=== PATIENT | male | born 1985 | race Two or more races ===

== ENCOUNTER 2018-05-25 18:45 | Emergency (ER) | payer MEDICAID, OTHER ==
[~2018-05-25] VITALS: Ht 170.2 cm; Wt 60.9 kg
[~2018-05-25 18:45] MED LIST: RALT400T PO; [UNRECOGNIZED DRUG - CODE] PEG; [UNRECOGNIZED DRUG - CODE] PO
[2018-05-25] MEDS ORDERED: LORazepam 2 mg/ml vial IV ONE (19:00)
[2018-05-25] MEDS ORDERED: normal saline 1000ML IV soln IVB ONE (19:00)
[2018-05-25 19:24] VITALS: BP 126/80
[2018-05-25 19:43] LABS: ALANINE AMINOTRANSFERASE 24 U/L (12-78); ALBUMIN 3.8 G/DL (3.4-5.0); ALBUMIN/GLOBULIN RATIO 0.6 (1.1-1.5); ALKALINE PHOSPHATASE 104 IU/L (46-116); ANION GAP 13 (8-16); ASPARTATE AMINO TRANSFERASE 23 U/L (10-37); BILIRUBIN,TOTAL 0.4 MG/DL (0.1-1.0); BLOOD UREA NITROGEN 16 MG/DL (7-18); CALCIUM 9.6 MG/DL (8.5-10.1); CHLORIDE 98 MMOL/L (99-107); CREATININE 1.07 MG/DL (0.60-1.10); GLUCOSE 116 MG/DL (70-104); MAGNESIUM 1.8 MG/DL (1.5-2.4); POTASSIUM 3.2 MMOL/L (3.5-5.1); SODIUM 134 MMOL/L (135-145); TOTAL CARBON DIOXIDE 23.4 MMOL/L (24-32); TOTAL PROTEIN 9.7 G/DL (6.4-8.2); eGFR 80 ML/MIN
[2018-05-25 19:44] LABS: BASOPHILS % (AUTO) 0.5 % (0-1); EOSINOPHILS # (AUTO) 0.2 X10'3 (0-0.9); EOSINOPHILS % (AUTO) 2.1 % (0-6); HEMATOCRIT 37.3 % (42.0-52.0); HEMOGLOBIN 12.4 g/dl (14.0-17.9); LYMPHOCYTES # (AUTO) 1.8 X10'3 (1.1-4.8); LYMPHOCYTES % (AUTO) 23.8 % (21-51); MEAN CORPUSCULAR HEMOGLOBIN 27.7 PG (27.0-31.0); MEAN CORPUSCULAR HGB CONC 33.3 g/dL (33.0-36.5); MEAN CORPUSCULAR VOLUME 83.2 FL (78-98); MEAN PLATELET VOLUME 8.3 FL (7.4-10.4); MONOCYTES # (AUTO) 0.4 X10'3 (0-0.9); MONOCYTES % (AUTO) 4.9 % (2-12); NEUTROPHILS # (AUTO) 5.3 X10'3 (1.8-7.7); NEUTROPHILS % (AUTO) 68.7 % (42-75); PLATELET COUNT 269 X10'3 (140-440); RED BLOOD COUNT 4.49 X10'6 (4.70-6.10); RED CELL DISTRIBUTION WIDTH 18.3 % (11.5-14.5); WHITE BLOOD COUNT 7.7 X10'3 (4.5-11.0)
[2018-05-25] MEDS ORDERED: potassium Cl 20 mEq SR tablet PO STA (19:57)
[2018-05-25] MEDS ORDERED: TRAM50TA2 PO (20:00)
== END 2018-05-25 20:13 | disposition home or self-care (01) ==
LOC: ER 18:45
DX: R00.2 Palpitations (principal); E87.6 Hypokalemia; Z79.899 Other long term (current) drug therapy
CPT/HCPCS: 36415; 71045; 80053; 83735; 84484; 85025; 93005; 96374; 99284; J2060; J7030

== ENCOUNTER 2018-07-18 08:26 | Day surgery (SDC) | payer MEDICAID, OTHER ==
--- NOTE | 2018-07-18 11:00 | NUR ---
Patient ambulated independently from [facility] accompanied by his sister Kelli and was admitted to outpatient wound care for physician visit with Issa Torrez MD. Dressing removed, wound cleansed. New patient assessment completed with review of patient's medical history and current medications. 1025 - Dr. Torrez at bedside accompanied by RN. Wound assessed, time out performed by MD/RN. Wound debrided as detailed in the physician progress/procedure note. Plan of care discussed with patient. Dressings placed per MD orders. Patient instructed on the signs and symptoms of infection and to call the Wound Center if any occur or to go to the ED if we are closed: Increased pain in wound Increase in drainage from the wound Redness in the skin surrounding the wound Bleeding from the wound Temperature of 101 or greater Patient instructed that the weight of their body puts a large amount of pressure on their wounds. This pressure keeps the new tissue from growing and inhibits new blood vessels from forming. Explained that, if they continue to bear weight on a body part that has a wound, the time it takes to heal the wound increases, the wound may get worse or the wound may not heal at all. Patient and Kelli verbalized understanding of all discharge instructions and plan of care and ambulated independently accompanied by Kelli out to [facility] in stable condition with no sign or symptom of distress at time of discharge.
[2018-07-18] MEDS ORDERED: SULF1TAB49 PO (16:07)
[2018-07-18] MEDS ORDERED: BICT1TAB (16:07)
== END 2018-07-18 10:40 | disposition home or self-care (01) ==
LOC: WOUND CARE 08:26
PROVIDERS: ATTEND Surgery
DX: S41.102A Unspecified open wound of left upper arm, initial encounter (principal); L72.3 Sebaceous cyst; E87.6 Hypokalemia; Z79.899 Other long term (current) drug therapy; X58.XXXA Exposure to other specified factors, initial encounter; Y93.89 Activity, other specified; Y92.89 Other specified places as the place of occurrence of the external cause; Y99.8 Other external cause status
CPT/HCPCS: 97597; A6266

== ENCOUNTER 2018-07-22 07:58 | Outpatient (CLI) | payer MEDICAID, OTHER ==
[~2018-07-22 07:58] MED LIST changes: +BICT1TAB; -RALT400T PO; +SULF1TAB49 PO; -[UNRECOGNIZED DRUG - CODE] PEG; -[UNRECOGNIZED DRUG - CODE] PO
--- NOTE | 2018-07-22 10:15 | NUR ---
Patient ambulated independently from [facility] accompanied by family member Kelli and was admitted to outpatient wound care for physician visit with Issa Torrez MD. Dressing removed, wound cleansed. Patient assessed for changes in conditions, medications and medical history. 1000 - Dr. Torrez at bedside accompanied by RN. Wound assessed and packing placed by MD. Plan of care discussed with patient. Patient instructed on the signs and symptoms of infection and to call the Wound Center if any occur or to go to the ED if we are closed: Increased pain in wound Increase in drainage from the wound Redness in the skin surrounding the wound Bleeding from the wound Temperature of 101 or greater Patient instructed that the weight of their body puts a large amount of pressure on their wounds. This pressure keeps the new tissue from growing and inhibits new blood vessels from forming. Explained that, if they continue to bear weight on a body part that has a wound, the time it takes to heal the wound increases, the wound may get worse or the wound may not heal at all. Patient and Kelli verbalized understanding of all discharge instructions and plan of care and patient ambulated independently out to [facility] accompanied by Kelli and is in stable condition with no sign or symptom of distress at time of discharge.
== END 2018-07-22 10:06 | disposition home or self-care (01) ==
LOC: WOUND CARE 07:58 → EDSTATUS 08:00 → WOUND CARE 10:06
PROVIDERS: ATTEND Surgery
DX: L72.3 Sebaceous cyst (principal); E87.6 Hypokalemia; Z79.899 Other long term (current) drug therapy
CPT/HCPCS: A6266; G0463; A6212

== ENCOUNTER 2018-08-13 07:50 | Day surgery (SDC) | payer MEDICAID ==
--- NOTE | 2018-08-13 10:30 | NUR ---
Patient ambulated independently from [facility] and was admitted to outpatient wound care for physician visit with Issa Torrez MD. Dressing removed, wound cleansed. Patient assessed for changes in conditions, medications and medical history. 1010 - Dr. Torrez at bedside accompanied by RN. Wound assessed, time out performed by MD/RN. Wound debrided as detailed in the physician progress/procedure note. Plan of care discussed with patient. Dressings placed per MD orders. Patient instructed on the signs and symptoms of infection and to call the Wound Center if any occur or to go to the ED if we are closed: Increased pain in wound Increase in drainage from the wound Redness in the skin surrounding the wound Bleeding from the wound Temperature of 101 or greater Patient instructed that the weight of their body puts a large amount of pressure on their wounds. This pressure keeps the new tissue from growing and inhibits new blood vessels from forming. Explained that, if they continue to bear weight on a body part that has a wound, the time it takes to heal the wound increases, the wound may get worse or the wound may not heal at all. Patient verbalized understanding of all discharge instructions and plan of care and ambulated independently accompanied by family member Kelli out to [facility] in stable condition with no sign or symptom of distress at time of discharge.
[2018-08-13] MEDS ORDERED: FLUC100T PO (14:37)
== END 2018-08-13 10:19 | disposition home or self-care (01) ==
LOC: WOUND CARE 07:50
PROVIDERS: ATTEND Surgery
DX: T81.89XD Other complications of procedures, not elsewhere classified, subsequent encounter (principal); L72.3 Sebaceous cyst; E87.6 Hypokalemia; Z79.899 Other long term (current) drug therapy; Y83.8 Other surgical procedures as the cause of abnormal reaction of the patient, or of later complication, without mention of misadventure at the time of the procedure
CPT/HCPCS: 11042; A6266

== ENCOUNTER 2018-08-20 07:54 | Day surgery (SDC) | payer MEDICAID ==
[2018-08-16 11:26] LABS: BASOPHILS % (AUTO) 0.4 % (0-1); EOSINOPHILS % (AUTO) 0.6 % (0-6); LYMPHOCYTES # (AUTO) 0.9 X10'3 (1.1-4.8); LYMPHOCYTES % (AUTO) 11.7 % (21-51); MEAN CORPUSCULAR HEMOGLOBIN 26.7 PG (27.0-31.0); MEAN CORPUSCULAR HGB CONC 32.9 g/dL (33.0-36.5); MEAN CORPUSCULAR VOLUME 81.2 FL (78-98); MEAN PLATELET VOLUME 8.7 FL (7.4-10.4); MONOCYTES # (AUTO) 0.4 X10'3 (0-0.9); MONOCYTES % (AUTO) 5.6 % (2-12); NEUTROPHILS # (AUTO) 6.3 X10'3 (1.8-7.7); NEUTROPHILS % (AUTO) 81.7 % (42-75); PRE OP HEMOGLOBIN 12.5 g/dL (14.0-17.9); PRE OP PLATELET COUNT 235 X10'3 (140-440); RED BLOOD COUNT 4.67 X10'6 (4.70-6.10); RED CELL DISTRIBUTION WIDTH 14.4 % (11.5-14.5)
[2018-08-16 11:26] LABS: CLARITY,URINE CLEAR (Clear); COLOR,URINE YELLOW (Yellow); GLUCOSE, URINE NEGATIVE (Neg); KETONES,URINE NEGATIVE (Neg); LEUKOCYTE ESTERASE ,URINE NEGATIVE (Neg); NITRITES, URINE NEGATIVE (Neg); OCCULT BLOOD,URINE NEGATIVE (Neg); PROTEIN,URINE TRACE mg/dl (Neg); UROBILINOGEN,URINE 0.2 E.U/dL (0.2-1.0)
[2018-08-16 11:34] LABS: BACTERIA,URINE NONE SEEN /HPF (Neg); MUCUS STRANDS FEW /LPF (Neg); RBC,URINE NONE SEEN /HPF (0-2); SQUAMOUS EPITHELIAL CELL,UR NONE SEEN /LPF (FEW); UA COLLECTION TYPE VOIDED; WBC,URINE 0-4 /HPF (0-4)
[2018-08-16 11:40] LABS: PRE OP INR 1.2 INR; PRE OP PROTIME 11.8 SECONDS (9.0-12.0)
[2018-08-16 11:41] LABS: ALBUMIN 3.1 G/DL (3.4-5.0); ALBUMIN/GLOBULIN RATIO 0.5 (1.1-1.5); ALKALINE PHOSPHATASE 110 IU/L (46-116); BLOOD UREA NITROGEN 19 MG/DL (7-18); BUN/CREATININE RATIO 20.4 (5.4-32.0); CALCIUM 9.1 MG/DL (8.5-10.1); CHLORIDE 98 MMOL/L (99-107); CREATININE 0.93 MG/DL (0.60-1.10); PRE OP ALT 21 U/L (30-65); PRE OP ANION GAP 11 (8-16); PRE OP AST 17 U/L (10-37); PRE OP BILIRUB, TOTAL 0.4 MG/DL (0.0-1.0); PRE OP POTASSIUM 4.3 MMOL/L (3.4-5.1); PRE OP SODIUM 135 MMOL/L (135-145); TOTAL CARBON DIOXIDE 25.9 MMOL/L (24-32); TOTAL PROTEIN 9.1 G/DL (6.4-8.2); eGFR > 90 ML/MIN
[2018-08-16 11:42] LABS: PRE OP GLUCOSE 101 MG/DL (70-104)
[2018-08-20] VITALS (10 sets, daily range): BP systolic 106–121; BP diastolic 67–80
[~2018-08-20] VITALS: Ht 170.2 cm; Wt 57.6 kg
[~2018-08-20 07:54] MED LIST changes: +FLUC100T PO; -SULF1TAB49 PO; +cefazolin/dext.iso 2gm/100 ML IV ONE; +famotidine 20mg tablet PO ONE; +ringers solution, lacted 1,000 ML IV SCH
[2018-08-20] MEDS ORDERED: BUPIVAcaine/PF 2.5 mg/ml (0.25%) 30ml vial ONE (09:34)
[2018-08-20] MEDS ORDERED: sevoflurane 250ml liquid IH ONE (10:27)
[2018-08-20] MEDS ORDERED: MIDAZolam 5mg/5ml vial ONE (10:31)
[2018-08-20] MEDS ORDERED: fentaNYL/PF 50MCG/1 ML 2ML syringe ONE ×2 (10:31→11:06)
[2018-08-20] MEDS ORDERED: LIDOcaine 2% (20mg/ml) 5ml vial ONE (10:38)
[2018-08-20] MEDS ORDERED: propofol inj 20 ML IV ONE (10:38)
[2018-08-20] MEDS ORDERED: ondansetron/PF 4mg/2ml inj ONE (10:41)
[2018-08-20] MEDS ORDERED: ringers solution, lacted 1,000 ML IV SCH (10:56)
[2018-08-20] MEDS ORDERED: ondansetron/PF 4mg/2ml inj IV PRN (11:00)
[2018-08-20] MEDS ORDERED: proCHLORperazine 10 MG/2 ml inj IV PRN (11:00)
[2018-08-20] MEDS ORDERED: meperidine/PF 25mg/ml syringe IV PRN ×3 (11:00)
[2018-08-20] MEDS ORDERED: morphine 4 MG/ML inj SYRINge IV PRN ×2 (11:00)
--- NOTE | 2018-08-20 11:45 | NUR ---
Received from OR via BED, accompanied by Anesthesiologist DR RASHID--- and report given by Anesthesiolgist. PATIENT A&OX4, DENIES PAIN, V/S WNL, NEUROVASCULAR CHECKS INTACT, 20G PIV RUE, SCD ON, DRESSING TO LEFT AXILLARY CDI
--- NOTE | 2018-08-20 12:55 | NUR ---
PATIENT A&OX4, DENIES PAIN, V/S WNL, NEUROVASCULAR CHECKS INTACT, 20G PIV RUE D/C, SCD OFF, DRESSING TO LEFT AXILLARY CDI, I HAVE REVIEWED D/C INSTRUCTIONS WITH PATIENT AND FAMILY AND THEY HAVE VERBALIZED UNDERSTANDING. PATIENT D/C HOME WITH ALL BELONGINGS AND FAMILY GAVE TRANSPORT HOME.
== END 2018-08-20 12:55 | disposition home or self-care (01) ==
LOC: PAS 07:54
PROVIDERS: ATTEND Surgery
DX: T81.89XA Other complications of procedures, not elsewhere classified, initial encounter (principal); Y83.8 Other surgical procedures as the cause of abnormal reaction of the patient, or of later complication, without mention of misadventure at the time of the procedure; Z79.899 Other long term (current) drug therapy; Z98.890 Other specified postprocedural states
CPT/HCPCS: 36415; 38500; 80053; 81001; 85025; 85610; 85730; 87015; 87070; 87075; 87102; 87116; 87176; 87206; 93005; A6454; J2001; J2250; J2405; J2704; J3010; J3490; A4618; A6449; A6455; A7000; J7120

== ENCOUNTER 2018-08-23 08:26 | Outpatient (CLI) | payer MEDICAID ==
[~2018-08-23 08:26] MED LIST changes: -cefazolin/dext.iso 2gm/100 ML IV ONE; -famotidine 20mg tablet PO ONE; -ringers solution, lacted 1,000 ML IV SCH
--- NOTE | 2018-08-23 13:55 | NUR ---
Patient ambulated independently from [facility] and was admitted to outpatient wound care for physician visit with Issa Torrez MD. Dressing removed, wound cleansed and lidocaine applied per order. Patient assessed for changes in conditions, medications and medical history. Dr. Torrez at bedside accompanied by RN. Wound assessed and no debridement was done. Plan of care discussed with patient. Dressings placed per MD orders. Patient instructed on the signs and symptoms of infection and to call the Wound Center if any occur or to go to the ED if we are closed: Increased pain in wound Increase in drainage from the wound Redness in the skin surrounding the wound Bleeding from the wound Temperature of 101 or greater Patient instructed that the weight of their body puts a large amount of pressure on their wounds. This pressure keeps the new tissue from growing and inhibits new blood vessels from forming. Explained that, if they continue to bear weight on a body part that has a wound, the time it takes to heal the wound increases, the wound may get worse or the wound may not heal at all. Patient verbalized understanding of all discharge instructions and plan of care and ambulated independently out to [facility] in stable condition with no sign or symptom of distress at time of discharge. Addendum: 08/23/18 at 1358 by Silvia Lopez RN Amended: Links added.
== END 2018-08-23 09:45 | disposition home or self-care (01) ==
LOC: WOUND CARE 08:26 → EDSTATUS 08:30 → WOUND CARE 09:45
PROVIDERS: ATTEND Surgery
DX: T81.89XD Other complications of procedures, not elsewhere classified, subsequent encounter (principal); L72.3 Sebaceous cyst; E87.6 Hypokalemia; Z79.899 Other long term (current) drug therapy; Y83.8 Other surgical procedures as the cause of abnormal reaction of the patient, or of later complication, without mention of misadventure at the time of the procedure
CPT/HCPCS: A6266; G0463; A4663

== ENCOUNTER 2018-08-30 08:15 | Outpatient (CLI) | payer MEDICAID ==
--- NOTE | 2018-08-30 14:12 | NUR ---
Patient arrived safely into [facility] via wheelchair accompanied by mother. Patient admitted to outpatient wound care clinic for visit with Issa Torrez MD. Dressing removed, wound cleansed and lidocaine applied per order. Patient assessed and medications and medical history reviewed. Dr. Torrez at bedside accompanied by RN. Wound assessed, time out performed by MD/RN. Wound debrided as detailed in the physician progress/procedure note. Plan of care discussed with patient. Dressings placed per MD orders. Patient instructed on the signs and symptoms of infection and to call the Wound Center if any occur or to go to the ED if we are closed: Increased pain in wound Increase in drainage from the wound Redness in the skin surrounding the wound Bleeding from the wound Temperature of 101 or greater Patient instructed that the weight of their body puts a large amount of pressure on their wounds. This pressure keeps the new tissue from growing and inhibits new blood vessels from forming. Explained that, if they continue to bear weight on a body part that has a wound, the time it takes to heal the wound increases, the wound may get worse or the wound may not heal at all. Patient verbalized understanding of all discharge instructions and plan of care. Patient left in stable condition with no sign or symptom of distress at time of discharge. Addendum: 08/30/18 at 1413 by José Luis Snow RN Amended: Links added.
== END 2018-08-30 09:54 | disposition home or self-care (01) ==
LOC: WOUND CARE 08:15 → EDSTATUS 08:30 → WOUND CARE 09:54
PROVIDERS: ATTEND Surgery
DX: T81.40XD Infection following a procedure, unspecified, subsequent encounter (principal); L72.3 Sebaceous cyst; E87.6 Hypokalemia; Z79.899 Other long term (current) drug therapy; Y83.8 Other surgical procedures as the cause of abnormal reaction of the patient, or of later complication, without mention of misadventure at the time of the procedure
CPT/HCPCS: A6266; G0463; A4663

== ENCOUNTER 2018-09-05 13:50 | Outpatient (CLI) | payer MEDICAID ==
[2018-09-05] MEDS ORDERED: LIDOcaine 2% 5ml jelly ONE (14:06)
--- NOTE | 2018-09-05 14:45 | NUR ---
Patient ambulated independently from [facility] and was admitted to outpatient wound care for physician visit with Issa Torrez MD. Placed in contact isolation precautions per hospital policy. Dressing removed, wound cleansed and lidocaine applied per order. Patient assessed for changes in conditions, medications and medical history. 1425 - Dr. Torrez at bedside accompanied by RN. Wound assessed and packed with iodoform by MD. Plan of care discussed with patient and Kelli, family member. Dressings placed per MD orders. Patient instructed on the signs and symptoms of infection and to call the Wound Center if any occur or to go to the ED if we are closed: Increased pain in wound Increase in drainage from the wound Redness in the skin surrounding the wound Bleeding from the wound Temperature of 101 or greater Patient instructed that the weight of their body puts a large amount of pressure on their wounds. This pressure keeps the new tissue from growing and inhibits new blood vessels from forming. Explained that, if they continue to bear weight on a body part that has a wound, the time it takes to heal the wound increases, the wound may get worse or the wound may not heal at all. Patient verbalized understanding of all discharge instructions and plan of care and ambulated independently out to [facility] in stable condition with no sign or symptom of distress at time of discharge.
[2018-09-05] MEDS ORDERED: VIT1CAPS (16:12)
[2018-09-05] MEDS ORDERED: DOLU50TA (16:12)
[2018-09-05] MEDS ORDERED: EMTR1TAB12 PO (16:12)
[2018-09-05] MEDS ORDERED: ISON300T20 PO (16:12)
[2018-09-05] MEDS ORDERED: PYRA500T21 (16:12)
[2018-09-05] MEDS ORDERED: ETHA400T8 (16:14)
[2018-09-05] MEDS ORDERED: [UNRECOGNIZED DRUG - CODE] (16:14)
== END 2018-09-05 14:25 | disposition home or self-care (01) ==
LOC: WOUND CARE 13:50
PROVIDERS: ATTEND Surgery
DX: T81.40XD Infection following a procedure, unspecified, subsequent encounter (principal); L72.3 Sebaceous cyst; E87.6 Hypokalemia; Z79.899 Other long term (current) drug therapy; Z98.890 Other specified postprocedural states; Y83.8 Other surgical procedures as the cause of abnormal reaction of the patient, or of later complication, without mention of misadventure at the time of the procedure
CPT/HCPCS: A6266; G0463; A4663

== ENCOUNTER 2018-09-12 14:05 | Day surgery (SDC) | payer MEDICAID ==
[~2018-09-12 14:05] MED LIST changes: +DOLU50TA; +EMTR1TAB12 PO; +ETHA400T8; +ISON300T20 PO; +PYRA500T21; +VIT1CAPS; +[UNRECOGNIZED DRUG - CODE]
[2018-09-12] MEDS ORDERED: LIDOcaine 2% 5ml jelly ONE (14:17)
== END 2018-09-12 14:45 | disposition home or self-care (01) ==
LOC: WOUND CARE 14:05
PROVIDERS: ATTEND Surgery
DX: T81.89XD Other complications of procedures, not elsewhere classified, subsequent encounter (principal); L72.3 Sebaceous cyst; E87.6 Hypokalemia; Z79.899 Other long term (current) drug therapy; Z98.890 Other specified postprocedural states; Y83.8 Other surgical procedures as the cause of abnormal reaction of the patient, or of later complication, without mention of misadventure at the time of the procedure
CPT/HCPCS: 97597; A6266; A4663

== ENCOUNTER 2018-09-19 13:45 | Day surgery (SDC) | payer MEDICAID ==
[2018-09-19] MEDS ORDERED: LIDOcaine 2% 5ml jelly ONE (14:04)
== END 2018-09-19 14:39 | disposition home or self-care (01) ==
LOC: WOUND CARE 13:45
PROVIDERS: ATTEND Surgery
DX: T81.89XD Other complications of procedures, not elsewhere classified, subsequent encounter (principal); L72.3 Sebaceous cyst; E87.6 Hypokalemia; Z79.899 Other long term (current) drug therapy; Z98.890 Other specified postprocedural states; Y83.8 Other surgical procedures as the cause of abnormal reaction of the patient, or of later complication, without mention of misadventure at the time of the procedure
CPT/HCPCS: 97597; A4663; A6021

== ENCOUNTER 2018-09-26 13:50 | Day surgery (SDC) | payer MEDICAID ==
[2018-09-26] MEDS ORDERED: LIDOcaine 2% 5ml jelly ONE (14:00)
== END 2018-09-26 14:25 | disposition home or self-care (01) ==
LOC: WOUND CARE 13:50
PROVIDERS: ATTEND Surgery
DX: T81.89XD Other complications of procedures, not elsewhere classified, subsequent encounter (principal); L72.3 Sebaceous cyst; E87.6 Hypokalemia; Z79.899 Other long term (current) drug therapy; Z98.890 Other specified postprocedural states; Y83.8 Other surgical procedures as the cause of abnormal reaction of the patient, or of later complication, without mention of misadventure at the time of the procedure
CPT/HCPCS: 97597; A4663; A6021; A6212

== ENCOUNTER 2018-10-03 13:50 | Day surgery (SDC) | payer MEDICAID ==
[2018-10-03] MEDS ORDERED: LIDOcaine 2% 5ml jelly ONE (13:59)
== END 2018-10-03 14:34 | disposition home or self-care (01) ==
LOC: WOUND CARE 13:50
PROVIDERS: ATTEND Surgery
DX: T81.89XD Other complications of procedures, not elsewhere classified, subsequent encounter (principal); L72.3 Sebaceous cyst; E87.6 Hypokalemia; Z79.899 Other long term (current) drug therapy; Z98.890 Other specified postprocedural states; Y83.8 Other surgical procedures as the cause of abnormal reaction of the patient, or of later complication, without mention of misadventure at the time of the procedure
CPT/HCPCS: 97597; A4663; A6021; A6212

== ENCOUNTER 2018-10-17 13:50 | Day surgery (SDC) | payer MEDICAID ==
[2018-10-17] MEDS ORDERED: LIDOcaine 2% 5ml jelly ONE (13:51)
== END 2018-10-17 14:45 | disposition home or self-care (01) ==
LOC: WOUND CARE 13:50
PROVIDERS: ATTEND Surgery
DX: T81.89XD Other complications of procedures, not elsewhere classified, subsequent encounter (principal); L72.3 Sebaceous cyst; E87.6 Hypokalemia; Z79.899 Other long term (current) drug therapy; Z98.890 Other specified postprocedural states; Y83.8 Other surgical procedures as the cause of abnormal reaction of the patient, or of later complication, without mention of misadventure at the time of the procedure
CPT/HCPCS: 97597; A4663; A6021; A6212

== ENCOUNTER 2018-10-31 14:00 | Day surgery (SDC) | payer MEDICAID | END 2018-10-31 14:24 | disposition home or self-care (01) | LOC: WOUND CARE 14:00 | PROVIDERS: ATTEND Surgery | DX: T81.89XD Other complications of procedures, not elsewhere classified, subsequent encounter (principal); L72.3 Sebaceous cyst; E87.6 Hypokalemia; Z79.899 Other long term (current) drug therapy; Z98.890 Other specified postprocedural states; Y83.8 Other surgical procedures as the cause of abnormal reaction of the patient, or of later complication, without mention of misadventure at the time of the procedure | CPT/HCPCS: 97597; A4663; A6212 ==

== ENCOUNTER 2018-11-07 11:50 | Outpatient (CLI) | payer MEDICAID | END 2018-11-07 12:25 | disposition home or self-care (01) | LOC: WOUND CARE 11:50 → EDSTATUS 12:00 → WOUND CARE 12:25 | PROVIDERS: ATTEND Surgery | DX: T81.89XD Other complications of procedures, not elsewhere classified, subsequent encounter (principal); L72.3 Sebaceous cyst; E87.6 Hypokalemia; Z79.899 Other long term (current) drug therapy; Z98.890 Other specified postprocedural states; Y83.8 Other surgical procedures as the cause of abnormal reaction of the patient, or of later complication, without mention of misadventure at the time of the procedure | CPT/HCPCS: A4663; A6021; G0463 ==

== ENCOUNTER 2018-11-14 13:50 | Day surgery (SDC) | payer MEDICAID | END 2018-11-14 14:17 | disposition home or self-care (01) | LOC: WOUND CARE 13:50 | PROVIDERS: ATTEND Surgery | DX: T81.89XD Other complications of procedures, not elsewhere classified, subsequent encounter (principal); L72.3 Sebaceous cyst; E87.6 Hypokalemia; Z79.899 Other long term (current) drug therapy; Z98.890 Other specified postprocedural states; Y83.8 Other surgical procedures as the cause of abnormal reaction of the patient, or of later complication, without mention of misadventure at the time of the procedure | CPT/HCPCS: 97597; A4663; A6021 ==

== ENCOUNTER 2018-11-21 13:44 | Day surgery (SDC) | payer MEDICAID ==
[2018-11-21] MEDS ORDERED: LIDOcaine/PRILOcaine 5gm cream TP ONE (13:49)
== END 2018-11-21 14:10 | disposition home or self-care (01) ==
LOC: WOUND CARE 13:44
PROVIDERS: ATTEND Surgery
DX: T81.89XD Other complications of procedures, not elsewhere classified, subsequent encounter (principal); L72.3 Sebaceous cyst; E87.6 Hypokalemia; A18.2 Tuberculous peripheral lymphadenopathy; Z79.899 Other long term (current) drug therapy; Z98.890 Other specified postprocedural states; Y83.8 Other surgical procedures as the cause of abnormal reaction of the patient, or of later complication, without mention of misadventure at the time of the procedure
CPT/HCPCS: 97597; A4663; A6021

== ENCOUNTER 2018-12-02 13:55 | Day surgery (SDC) | payer MEDICAID ==
[2018-12-02] MEDS ORDERED: LIDOcaine 2% 5ml jelly ONE (14:06)
[2018-12-02] MEDS ORDERED: LIDOcaine 1%/PF 5ML 10 MG/ML VIAL ONE (14:28)
== END 2018-12-02 14:40 | disposition home or self-care (01) ==
LOC: WOUND CARE 13:55
PROVIDERS: ATTEND Surgery
DX: T81.89XD Other complications of procedures, not elsewhere classified, subsequent encounter (principal); L72.3 Sebaceous cyst; E87.6 Hypokalemia; A18.2 Tuberculous peripheral lymphadenopathy; Z79.899 Other long term (current) drug therapy; Z98.890 Other specified postprocedural states; Y83.8 Other surgical procedures as the cause of abnormal reaction of the patient, or of later complication, without mention of misadventure at the time of the procedure
CPT/HCPCS: 97597; A4215; A4663; A6021

== ENCOUNTER 2018-12-12 13:15 | Day surgery (SDC) | payer MEDICAID ==
[2018-12-12] MEDS ORDERED: LIDOcaine 2% 5ml jelly ONE (13:28)
== END 2018-12-12 14:30 | disposition home or self-care (01) ==
LOC: WOUND CARE 13:15
PROVIDERS: ATTEND Surgery
DX: T81.89XD Other complications of procedures, not elsewhere classified, subsequent encounter (principal); L72.3 Sebaceous cyst; E87.6 Hypokalemia; A18.2 Tuberculous peripheral lymphadenopathy; Z79.899 Other long term (current) drug therapy; Z98.890 Other specified postprocedural states; Y83.8 Other surgical procedures as the cause of abnormal reaction of the patient, or of later complication, without mention of misadventure at the time of the procedure
CPT/HCPCS: 97597; A4663; A6021; A6154

== ENCOUNTER 2018-12-19 13:04 | Day surgery (SDC) | payer MEDICAID ==
[2018-12-19] MEDS ORDERED: LIDOcaine 2% 5ml jelly ONE (13:12)
== END 2018-12-19 13:59 | disposition home or self-care (01) ==
LOC: WOUND CARE 13:04
PROVIDERS: ATTEND Surgery
DX: T81.89XD Other complications of procedures, not elsewhere classified, subsequent encounter (principal); L72.3 Sebaceous cyst; E87.6 Hypokalemia; A18.2 Tuberculous peripheral lymphadenopathy; Z79.899 Other long term (current) drug therapy; Z98.890 Other specified postprocedural states; Y83.8 Other surgical procedures as the cause of abnormal reaction of the patient, or of later complication, without mention of misadventure at the time of the procedure
CPT/HCPCS: 97597; A4663; A6021

== ENCOUNTER 2018-12-26 11:31 | Day surgery (SDC) | payer MEDICAID ==
[2018-12-26] MEDS ORDERED: LIDOcaine 2% 5ml jelly ONE (12:01)
== END 2018-12-26 12:40 | disposition home or self-care (01) ==
LOC: WOUND CARE 11:31
PROVIDERS: ATTEND Surgery
DX: T81.89XD Other complications of procedures, not elsewhere classified, subsequent encounter (principal); L72.3 Sebaceous cyst; E87.6 Hypokalemia; A18.2 Tuberculous peripheral lymphadenopathy; Z79.899 Other long term (current) drug therapy; Z98.890 Other specified postprocedural states; Y83.8 Other surgical procedures as the cause of abnormal reaction of the patient, or of later complication, without mention of misadventure at the time of the procedure
CPT/HCPCS: 97597; A4663; A6021

== ENCOUNTER 2019-01-09 11:25 | Outpatient (CLI) | payer MEDICAID ==
[2019-01-09] MEDS ORDERED: LIDOcaine 2% 5ml jelly ONE (11:32)
== END 2019-01-09 12:20 | disposition home or self-care (01) ==
LOC: WOUND CARE 11:25 → EDSTATUS 11:30 → WOUND CARE 12:20
PROVIDERS: ATTEND Surgery
DX: T81.89XD Other complications of procedures, not elsewhere classified, subsequent encounter (principal); L72.3 Sebaceous cyst; E87.6 Hypokalemia; A18.2 Tuberculous peripheral lymphadenopathy; Z79.899 Other long term (current) drug therapy; Z98.890 Other specified postprocedural states; Y83.8 Other surgical procedures as the cause of abnormal reaction of the patient, or of later complication, without mention of misadventure at the time of the procedure
CPT/HCPCS: A4663; A6021; G0463